=== PATIENT | male | born 1960 ===

== ENCOUNTER 2018-06-04 14:17 | Emergency (ER) | payer BC ==
[2018-06-04 14:26] VITALS: BP 132/85
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
== END 2018-06-04 15:12 | disposition home or self-care (01) ==
LOC: UCEAST 14:17
DX: S50.01XA Contusion of right elbow, initial encounter (principal); J45.909 Unspecified asthma, uncomplicated; V19.9XXA Pedal cyclist (driver) (passenger) injured in unspecified traffic accident, initial encounter; Y93.I9 Activity, other involving external motion; Y92.89 Other specified places as the place of occurrence of the external cause
CPT/HCPCS: 99201; G0463